=== PATIENT | male | born 1985 | race American Indian/Alaskan Native ===

== ENCOUNTER 2018-02-12 01:20 | Emergency (ER) | payer OTHER ==
[2018-02-12 02:40] VITALS: BP 126/82
[2018-02-12 03:50] LABS: Basophils # (Auto) 0.1 K/mm3 (0.0-0.1); Basophils % (Auto) 1.3 % (0.0-1.8); Eosinophils # (Auto) 0.1 K/mm3 (0.0-0.4); Eosinophils % (Auto) 1.7 % (0.0-4.3); Hematocrit 44.9 % (35.5-45.6); Hemoglobin 15.3 gm/dl (11.8-15.2); Lymphocytes # (Auto) 2.6 K/mm3 (1.2-5.4); Lymphocytes % (Auto) 30.4 % (13.4-35.0); Mean Corpuscular HGB Conc 34 % (32-34); Mean Corpuscular Volume 76 fl (84-94); Monocytes # (Auto) 0.7 K/mm3 (0.0-0.8); Monocytes % (Auto) 8.3 % (0.0-7.3); Red Blood Count 5.92 M/mm3 (3.65-5.03); Red Cell Distribution Width 16.4 % (13.2-15.2)
[2018-02-12 04:17] LABS: BUN/Creatinine Ratio 10; Blood Urea Nitrogen 9 mg/dL (9-20); Calcium 9.2 mg/dL (8.4-10.2); Hemolysis Index 9
[2018-02-12 04:25] LABS: Mean Corpuscular Hemoglobin 26 pg (28-32); Platelet Count 219 K/mm3 (140-440)
--- NOTE | 2018-02-12 07:20 | Emergency Department Report ---
HPI - General Chief Complaint: Psych Time Seen by Provider: 02/12/18 07:06 - HPI HPI: Room 16 The patient is a 32 year old male presenting with a chief complaint of auditory hallucinations. The patient says for the past 2 weeks he's had auditory hallucinations as it appears "deep sounds" and "voices", through the radio in his car or anything that's electronic. The patient states sometimes the voices state that "they're going to kill me" . Patient denies suicidal or homicidal ideation. Patient denies visual hallucinations. Location: Mental state Duration: 2 weeks Quality: Auditory hallucination Severity: Moderate Modifying factors: [see above] Context: [see above] Mode of transportation: [not driving] ED Past Medical Hx - Past Medical History Previous Medical History?: No - Surgical History Past Surgical History?: No - Family History Family history: no significant - Social History Smoking Status: Current Every Day Smoker (2/3 pack per day) Substance Use Type: Alcohol (rarely), Marijuana ED Review of Systems ROS: Stated complaint: HEAR VOICES IN MY HEADS Other details as noted in HPI Psychiatric: auditory hallucinations. denies: visual hallucinations, homicidal thoughts, suicidal thoughts Physical Exam - Physical Exam Vital Signs: Vital Signs 02/12/18 02:32 Temperature 98.6 F Pulse Rate 98 H Respiratory 18 Rate Blood Pressure 126/82 O2 Sat by Pulse 96 Oximetry Physical Exam: GENERAL: The patient is well-developed well-nourished male lying on stretcher playing with cellphone not appearing to be in acute distress. [] HEENT: Normocephalic. Atraumatic. Extraocular motions are intact. Patient has moist mucous membranes. NECK: Supple. No meningitic signs are noted. Trachea midline CHEST/LUNGS: Clear to auscultation. There is no respiratory distress noted. HEART/CARDIOVASCULAR: Regular. There is no tachycardia. There is no gallop rub or murmur. ABDOMEN: Abdomen is soft, nontender. Patient has normal bowel sounds. There is no abdominal distention. SKIN: There is no rash. There is no edema. There is no diaphoresis. NEURO: The patient is awake, alert, and oriented. The patient is cooperative. The patient has no focal neurologic deficits. The patient has normal speech. Cranial nerves II through XII grossly intact, no drift MUSCULOSKELETAL: There is no evidence of acute injury. ED Course Vital Signs 02/12/18 02:32 Temperature 98.6 F Pulse Rate 98 H Respiratory 18 Rate Blood Pressure 126/82 O2 Sat by Pulse 96 Oximetry ED Medical Decision Making - Lab Data Result diagrams: 02/12/18 03:16 02/12/18 03:16 Laboratory Tests 02/12/18 02/12/18 02/12/18 03:16 03:16 03:16 WBC RBC Hgb Hct MCV MCH MCHC RDW Plt Count Lymph % (Auto) Walker % (Auto) Eos % (Auto) Baso % (Auto) Lymph # Walker # Eos # Baso # Seg Neutrophils % Seg Neutrophils # Sodium 143 Potassium 3.8 Chloride 101.9 Carbon Dioxide 29 Anion Gap 16 BUN 9 Creatinine 0.9 Estimated GFR > 60 BUN/Creatinine Ratio 10 Glucose 132 H Calcium 9.2 Urine Color Urine Turbidity Urine pH Ur Specific Fri[place] Urine Protein Urine Glucose (UA) Urine Ketones Urine Blood Urine Nitrite Urine Bilirubin Urine Urobilinogen Ur Leukocyte Esterase Urine WBC (Auto) Urine RBC (Auto) U Epithel Cells (Auto) Urine Mucus Salicylates < 0.3 L Acetaminophen < 5.0 L Plasma/Serum Alcohol 02/12/18 02/12/18 02/12/18 03:16 03:16 08:37 WBC 8.5 RBC 5.92 H Hgb 15.3 H Hct 44.9 MCV 76 L MCH 26 L MCHC 34 RDW 16.4 H Plt Count 219 Lymph % (Auto) 30.4 Walker % (Auto) 8.3 H Eos % (Auto) 1.7 Baso % (Auto) 1.3 Lymph # 2.6 Walker # 0.7 Eos # 0.1 Baso # 0.1 Seg Neutrophils % 58.3 Seg Neutrophils # 4.9 Sodium Potassium Chloride Carbon Dioxide Anion Gap BUN Creatinine Estimated GFR BUN/Creatinine Ratio Glucose Calcium Urine Color Yellow Urine Turbidity Clear Urine pH 6.0 Ur Specific Fri[place] 1.025 Urine Protein <15 mg/dl Urine Glucose (UA) Neg Urine Ketones Neg Urine Blood Neg Urine Nitrite Neg Urine Bilirubin Neg Urine Urobilinogen 4.0 Ur Leukocyte Esterase Neg Urine WBC (Auto) 1.0 Urine RBC (Auto) 4.0 U Epithel Cells (Auto) < 1.0 Urine Mucus 2+ Salicylates Acetaminophen Plasma/Serum Alcohol < 0.01 - Radiology Data Radiology results: report reviewed (CT head) CT head (regular radiologist) -no acute abnormalities - Medical Decision Making Patient does not meet criteria for 1013 at this time. I explained to the patient that he should stay to talk to a psychiatrist. Patient states he has spoken to the mental health technical solutions consultant and does not wish to stay in the hospital any longer. Patient states he will follow up with the psychiatrist if we give him the information. Patient given strong warnings to return should he develop suicidal or homicidal ideation or anything else that concerns them. Patient verbalized understanding - Differential Diagnosis psychosis NOS, schizophrenia, brain mass, Critical care attestation.: If time is entered above; I have spent that time in minutes in the direct care of this critically ill patient, excluding procedure time. ED Disposition Clinical Impression: Auditory hallucinations Disposition: DC-01 TO HOME OR SELFCARE Is pt being admited?: No Does the pt Need Aspirin: No Condition: Stable Instructions: Schizophrenia (ED) Additional Instructions: Return to the emergency department immediately should you develop worsening symptoms, fever, inability to tolerate food or liquid or any other concerns. Referrals: PRIMARY CARE, [Primary Care Provider] - 3-5 Days [facility] [Outside] - KATHY (It is important that you go to the [facility] facility for further evaluation) Time of Disposition: 10:01
--- NOTE | 2018-02-12 09:00 | Cat Scan Report ---
FINAL REPORT EXAM: CT HEAD/BRAIN WO CON HISTORY: Medical Clearance Psych. Auditory hallucinations TECHNIQUE: CT of the head was performed. No intravenous contrast was administered. PRIORS: None. FINDINGS: There is no evidence of intracranial hemorrhage. There is no edema, mass effect or midline shift. There are no abnormal extra-axial fluid collections. The ventricles are appropriate for brain volume. There is no skull fracture seen. The visualized aspects of the sinuses are clear. IMPRESSION: There is no acute intracranial abnormality identified.
[2018-02-12 09:28] LABS: Bilirubin,Urine NEG (Negative); Blood,Urine NEG (Negative); Color,Urine Yellow (Yellow); Mucus,Urine 2+ /HPF; Protein,Urine <15 mg/dL mg/dL (Negative)
[2018-02-12 09:33] LABS: Benzodiazepines Screen,Urine PRESUMPTIVE NEGATIVE; Cocaine Screen,Urine PRESUMPTIVE NEGATIVE; Methadone Screen,Urine PRESUMPTIVE NEGATIVE; Opiate Screen,Urine PRESUMPTIVE NEGATIVE
[2018-02-12 09:54] LABS: Amphetamine Screen,Urine PRESUMPTIVE POSITIVE; Cannabinoid Screen,Urine PRESUMPTIVE POSITIVE
== END 2018-02-12 10:30 | disposition home or self-care (01) ==
LOC: ED 01:20
DX: R44.0 Auditory hallucinations (principal); F17.210 Nicotine dependence, cigarettes, uncomplicated; F12.90 Cannabis use, unspecified, uncomplicated
CPT/HCPCS: 36415; 70450; 80048; 80307; 81001; 85025; 99284; G0480; 80320